=== PATIENT | female | born 2000 | race Two or more races ===

== ENCOUNTER 2022-04-13 16:46 | Emergency (ER) | payer OTHER ==
[~2022-04-13] VITALS: Ht 165.1 cm; Wt 74.8 kg
[2022-04-13] MEDS ORDERED: ESCITALOPRAM OX20 MG PO (17:04)
== END 2022-04-13 20:12 | disposition home or self-care (01) ==
LOC: ER 16:46
DX: L03.031 Cellulitis of right toe (principal)

== ENCOUNTER 2024-06-18 18:26 | Emergency (ER) | payer OTHER ==
[~2024-06-18] VITALS: Ht 165.1 cm; Wt 65.8 kg
[~2024-06-18 18:26] MED LIST: ESCITALOPRAM OX20 MG PO
[2024-06-18 20:17] LABS: HEMATOCRIT 38.2 % (36.0-45.00); HEMOGLOBIN 12.9 g/dL (12.0-15.00); MEAN CELL VOLUME 84.8 fL (80.00-100.00); MEAN CORPUSCULAR HEMOGLOBIN 28.6 pg (27.00-32.0); MEAN CORPUSCULAR HGB CONC 33.8 g/dl (32.0-36.0); PLATELET COUNT 258 K/uL (150-450); RED BLOOD COUNT 4.51 M/uL (4.00-6.00); RED CELL DISTRIBUTION WIDTH 14.7 % (11.5-14.5)
[2024-06-18 20:32] LABS: URINE APPEARANCE Cloudy; URINE BACTERIA 4092.8 uL (0.0-1933); URINE BILIRRUBIN Negative (NEGATIVE); URINE BLOOD Large; URINE COLOR Yellow; URINE EPITHELIAL CELLS 37.9 uL (0.0-38.8); URINE GLUCOSE Negative (NEGATIVE); URINE KETONE Trace (NEGATIVE); URINE LEUKOCYTE Moderate; URINE NITRATE Positive; URINE PROTEIN 30 (NEGATIVE); URINE RBC 695.8 uL (0.0-20.8); URINE WBC 1015.9 uL (0.0-23.2)
[2024-06-18 20:38] LABS: CALCIUM 9.6 mg/dL (8.5-10.1); CREATININE SERUM 0.71 mg/dL (0.55-1.02); GFR 102.01; POTASSIUM 3.99 mEq/L (3.5-5.1)
[2024-06-18 21:23] LABS: URINE CAST 0.73 uL (0.0-1.40)
[2024-06-18] MEDS ORDERED: PYRIDIUM100 M1 PO (21:39)
[2024-06-18] MEDS ORDERED: BACTRIM DS TAB1 EACH PO (21:39)
[2024-06-18] MEDS ORDERED: CEFTRIAXONE SODIUM 1,000 MG VIAL IM ONE (22:00)
[2024-06-18] MEDS ORDERED: CEFTRIAXONE SODIUM 1,000 MG VIAL ONE (22:14)
[2024-06-18] MEDS ORDERED: KETOROLAC TROMETHAMINE 30 MG VIAL ONE (22:14)
[2024-06-18] MEDS ORDERED: KETOROLAC TROMETHAMINE 30 MG VIAL IM ONE (22:15)
== END 2024-06-18 22:23 | disposition home or self-care (01) ==
LOC: ER 18:27
PROVIDERS: General Practice
DX: R30.0 Dysuria (principal); N39.0 Urinary tract infection, site not specified